=== PATIENT | male | born 1970 | race Caucasian/White ===

== ENCOUNTER → 2017-06-07 11:19 | Outpatient (CLI) | payer BC, SELFPAY ==
--- NOTE | 2017-06-07 11:39 | EKG12_ITS ---
Test Reason : PRE-OP Blood Pressure : / mmHG Vent. Rate : 067 BPM Atrial Rate : 067 BPM P-R Int : 166 ms QRS Dur : 084 ms QT Int : 376 ms P-R-T Axes : 028 001 -30 degrees QTc Int : 397 ms Normal sinus rhythm Minimal voltage criteria for LVH, may be normal variant Nonspecific T wave abnormality Abnormal ECG Confirmed by CHRISTIANO DELCID, CROW ([id number]), associate editor CHRISTIAN APPIAH ([id number] on 06/08/2017 9:32:22 AM Referred By: Fredy Del Angel Confirmed By:CROW ALVARADO MD
== END ==
PROVIDERS: Family Provider Internal Medicine; PCP Internal Medicine; Visit Provider Orthopaedic Surgery
DX: Z01.810 Encounter for preprocedural cardiovascular examination (principal); I10 Essential (primary) hypertension
CPT/HCPCS: 93005

== ENCOUNTER → 2017-06-08 12:05 | Outpatient (CLI) | payer BC, SELFPAY ==
[2017-06-08 13:18] LABS: Hematocrit 43.2 % (40-54); Hemoglobin 15.5 g/dl (13.0-16.5); Mean Corp Hgb Conc 35.9 g/gl (32-36); Mean Corpuscular Hgb 30.2 pg (27.0-32.0); Mean Platelet Vol. 11.3 fl (6.2-12.0); Platelet Count 308 K/mm3 (150-450); RBC Distribution Width CV 12.5 % (11.6-14.6); RBC Distribution Width SD 37.7 fl (35.1-43.9); Red Blood Count 5.14 M/mm3 (4.6-6.2); Scan Indicated on CBC? Y/N NO
[2017-06-08 13:40] LABS: Anion Gap 9 (5-15); BUN 18 mg/dL (7-18); BUN/Creat Ratio 16.2 RATIO (10-20); Calcium,Total 8.8 mg/dL (8.5-10.1); Chloride 104 mmol/L (98-107); Creatinine, Serum 1.11 mg/dL (0.70-1.30); EST Glomerular Filtration Rate 75 mL/min (>60); Est Glom Filt Rate - Afr Amer 91 mL/min (>60); Glucose 137 mg/dL (74-106); Potassium 3.6 mmol/L (3.5-5.1); Sodium Level 141 mmol/L (136-145)
== END ==
PROVIDERS: Family Provider Internal Medicine; PCP Internal Medicine; Visit Provider Orthopaedic Surgery
DX: S43.431A Superior glenoid labrum lesion of right shoulder, initial encounter (principal); M75.41 Impingement syndrome of right shoulder; X58.XXXA Exposure to other specified factors, initial encounter
CPT/HCPCS: 36415; 80048; 85027

== ENCOUNTER 2017-06-19 15:02 | Emergency (ER) | payer BC, SELFPAY ==
[2017-06-19 15:04] VITALS: BP 177/93; PULSE 86; RESP 14; TEMP 36.3; O2SAT 97
[2017-06-19 15:05] VITALS: BP 177/93; PULSE 87; RESP 14; O2SAT 97; BMI 29.2
--- NOTE | 2017-06-19 15:33 | ED.DCSUM_ITS ---
- ER Visit Summary Date of Service: 06/19/17 Chief Complaint: Right leg pain History of Present Illness: The patient is a [address] Sanderson. Patient reports that 8 days ago while getting the bathtub he pulled his right groin. States that over the past 2 days the pain has begun to radiate down the anterior surface of his leg and to the medial calf. He denies any back pain. No problems with his bowels or his bladder. He reports it is a sharp pain and is 8 out of 10 at worst and 3-10 currently. Is worsened by standing or laying flat. Relieved by bending his knee. He reports that he has paresthesias just distal to his left knee and a small area. This does not extend into his foot or proximally. He denies any personal or family history of DVT. Patient had right shoulder arthroscopy approximately [address] Del Angel. This was an outpatient surgery and he continued his normal activities the next day. He denies any chest pain or shortness of breath. His review of systems is negative. Physical Examination: Vitals: Stable. Afebrile. General: A&O x 3. NAD. Cardiovascular exam: Regular rate and rhythm, no murmur, rub or gallop. Respiratory exam: Clear to auscultation bilaterally. No wheezes or stridor. Abdominal exam: Soft, nontender, nondistended, normal bowel sounds. No peritoneal signs. Back: Nontender. Negative straight leg bilaterally. 5/5 DF, PF, EHL bilaterally. Normal sensation to light touch throughout. Skin: No rash over the lower back or right leg to suggest shingles. Extremity: Mild pain over the proximal right thigh. No pain over the calf. No swelling, palpable cord, or paresthesias. No clubbing, cyanosis, or edema. Emergency Department Course and Treatment: Had a prolonged discussion with the patient. He has nothing that would suggest that he has a DVT. His pain began approximately rather than distally. He has no pain in his calf. The area where he does have pain does not have any large vein present. I did discuss and the likelihood that he has an L4 radiculopathy. He does not have a rash at this time to suggest shingles. Treatment Plan: Patient will be discharged with prednisone and oxycodone. Is also given a prescription for valacyclovir to begin if he develops a rash. Follow-up with his primary care physician 1 week if not improving. The signs and symptoms of cauda equina syndrome were discussed and he is instructed to return for these. Disposition: To home in improved and stable condition. Impression: 1. L4 radiculopathy. 2. 10 days status post right shoulder arthroscopy. This note was generated with [employer] dictation software. It may contain incorrect words, spelling, and punctuation that were not noted in review of the chart prior to signing ED Disposition - Plan for ED Patient: Disposition: Home or Assisted Living Chief Complaint: Lower Extremity Injury Instructions: ED Sciatica Prescriptions: Oxycodone HCl/Acetaminophen [Percocet 5/325] 1 tablet PO Q6H PRN PRN 5 Days #20 tablet PRN Reason: Pain Prednisone 10 mg PO DAILY #63 tablet Valacyclovir HCl [Valacyclovir] 1,000 mg PO TID #21 tablet Referrals: Ciara Sanderson MD [Primary Care Provider] - 1 Week if not improving
== END 2017-06-19 15:56 | disposition home or self-care (01) ==
LOC: ED 15:37
PROVIDERS: Emergency Provider Emergency Medicine; Family Provider Internal Medicine; PCP Internal Medicine
DX: M54.16 Radiculopathy, lumbar region (principal); Z98.890 Other specified postprocedural states; I10 Essential (primary) hypertension; G62.9 Polyneuropathy, unspecified; G47.33 Obstructive sleep apnea (adult) (pediatric); F17.220 Nicotine dependence, chewing tobacco, uncomplicated; Z79.899 Other long term (current) drug therapy
CPT/HCPCS: 99283

== ENCOUNTER 2017-09-28 14:23 | Emergency (ER) | payer BC, SELFPAY ==
[2017-09-28 14:24] VITALS: BP 150/99; PULSE 88; RESP 18; TEMP 36.6; O2SAT 98; BMI 29.5
--- NOTE | 2017-09-28 15:58 | ED.VISSUMM ---
- ER Visit Summary Date of Service: 09/28/17 Chief Complaint: Back pain History of Present Illness: The patient is a [address] 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 Patient reports that he had improvement following the injection, but his back pain returned 2 days ago. Describes it as a cramping pain that is 10 out of 10 severity. Is worsened by straightening up. Is relieved by leaning forward. He has Percocet at home, but reports that he is not taking it. The pain radiates around his right leg in an L4 distribution. He denies any numbness or weakness. No problems with his bowels or his bladder. No groin numbness. No recent trauma. No fall, MVA, or change in activity. Patient reports that he has not had an MRI because he was supposed to go to physical therapy first. States that he was to go to physical therapy today and was unable to. Review of systems: General: No fever, chills, cold sweats. Cardiovascular: No chest pain, palpitations. Respiratory: No cough, shortness of breath, dyspnea on exertion. Gastrointestinal: No abdominal pain, nausea, vomiting, diarrhea, melena, or hematochezia. Genitourinary: No dysuria, frequency, hematuria. Skin: No rash. Neuro: No headache, numbness, weakness. Physical Examination: Vitals: Stable. Afebrile. General: A&O x 3. NAD. Cardiovascular exam: Regular rate and rhythm, no murmur, rub or gallop. Respiratory exam: Clear to auscultation bilaterally. No wheezes or stridor. Abdominal exam: Soft, nontender, nondistended, normal bowel sounds. No peritoneal signs. Back: Moderate tenderness to palpation to the right paraspinous musculature in the lumbar region. No vertebral tenderness. No point tenderness. Positive straight leg raise on the right at approximately 20?. Negative straight leg raise on the left. 2+ patellar and Achilles tendon reflexes bilaterally. 5/5 DF, PF, EHL bilaterally. Decreased sensation to light touch in an L4 distribution on the right. Extremity: No clubbing, cyanosis, or edema. Emergency Department Course and Treatment: An [facility] report was obtained which shows had 16 prescriptions for opiates in the past year. The last was on September 08. It was 60 Percocet that were to last 30 days. Patient was treated with Toradol IM, oxycodone p.o., and prednisone p.o. here. Treatment Plan: Patient has Percocet at home already by his report. He will discharged with prednisone and instructed to follow-up with Dr. Ryan, his body painter, as soon as possible. The signs and symptoms of cauda equina disc syndrome were discussed and he was instructed to return for these. Disposition: To home in improved and stable condition. Impression: 1. Acute on chronic back pain. 2. L4 radiculopathy. This note was generated with [employer] dictation software. It may contain incorrect words, spelling, and punctuation that were not noted in review of the chart prior to signing ED Disposition - Plan for ED Patient: Chief Complaint: Back Instructions: ED Sciatica Prescriptions: Prednisone 10 mg PO DAILY #63 tablet Referrals: Ciara Sanderson MD [Primary Care Provider] - As soon as possible Additional Instructions: Follow-up with Dr. Ryan as soon as possible.
--- NOTE | 2017-09-28 16:12 | ED.DCSUM_ITS ---
- ER Visit Summary Date of Service: 09/28/17 Chief Complaint: Back pain History of Present Illness: The patient is a [address] 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 Patient reports that he had improvement following the injection, but his back pain returned 2 days ago. Describes it as a cramping pain that is 10 out of 10 severity. Is worsened by straightening up. Is relieved by leaning forward. He has Percocet at home, but reports that he is not taking it. The pain radiates around his right leg in an L4 distribution. He denies any numbness or weakness. No problems with his bowels or his bladder. No groin numbness. No recent trauma. No fall, MVA, or change in activity. Patient reports that he has not had an MRI because he was supposed to go to physical therapy first. States that he was to go to physical therapy today and was unable to. Review of systems: General: No fever, chills, cold sweats. Cardiovascular: No chest pain, palpitations. Respiratory: No cough, shortness of breath, dyspnea on exertion. Gastrointestinal: No abdominal pain, nausea, vomiting, diarrhea, melena, or hematochezia. Genitourinary: No dysuria, frequency, hematuria. Skin: No rash. Neuro: No headache, numbness, weakness. Physical Examination: Vitals: Stable. Afebrile. General: A&O x 3. NAD. Cardiovascular exam: Regular rate and rhythm, no murmur, rub or gallop. Respiratory exam: Clear to auscultation bilaterally. No wheezes or stridor. Abdominal exam: Soft, nontender, nondistended, normal bowel sounds. No peritoneal signs. Back: Moderate tenderness to palpation to the right paraspinous musculature in the lumbar region. No vertebral tenderness. No point tenderness. Positive straight leg raise on the right at approximately 20?. Negative straight leg raise on the left. 2+ patellar and Achilles tendon reflexes bilaterally. 5/5 DF , PF, EHL bilaterally. Decreased sensation to light touch in an L4 distribution on the right. Extremity: No clubbing, cyanosis, or edema. Emergency Department Course and Treatment: An [facility] report was obtained which shows had 16 prescriptions for opiates in the past year. The last was on September 08. It was 60 Percocet that were to last 30 days. Patient was treated with Toradol IM, oxycodone p.o., and prednisone p.o. here. Treatment Plan: Patient has Percocet at home already by his report. He will discharged with prednisone and instructed to follow-up with Dr. Ryan, his paint laboratory technician, as soon as possible. The signs and symptoms of cauda equina disc syndrome were discussed and he was instructed to return for these. Disposition: To home in improved and stable condition. Impression: 1. Acute on chronic back pain. 2. L4 radiculopathy. This note was generated with [employer] dictation software. It may contain incorrect words, spelling, and punctuation that were not noted in review of the chart prior to signing ED Disposition - Plan for ED Patient: Chief Complaint: Back Instructions: ED Sciatica Prescriptions: Prednisone 10 mg PO DAILY #63 tablet Referrals: Ciara Sanderson MD [Primary Care Provider] - As soon as possible Additional Instructions: Follow-up with Dr. Ryan as soon as possible.
[2017-09-28] MEDS: oxyCODONE 5 MG Tablet 10 MG PO (16:31)
[2017-09-28] MEDS: Ketorolac 60 MG/2 ML Vial IM (16:31)
[2017-09-28] MEDS: predniSONE 20 MG Tablet 60 MG PO (16:32)
== END 2017-09-28 17:01 | disposition home or self-care (01) ==
LOC: ED 16:30
PROVIDERS: Emergency Provider Emergency Medicine; Family Provider Internal Medicine; PCP Internal Medicine
DX: M54.9 Dorsalgia, unspecified (principal); G89.29 Other chronic pain; M54.16 Radiculopathy, lumbar region; I10 Essential (primary) hypertension; G62.9 Polyneuropathy, unspecified; Z79.899 Other long term (current) drug therapy
CPT/HCPCS: 96372; 99284